=== PATIENT | female | born 2000 | race Caucasian/White ===

== ENCOUNTER 2020-12-17 15:08 | Emergency (ER) | payer BC, OTHER ==
[~2020-12-17] VITALS: Ht 165.1 cm; Wt 65.8 kg
--- NOTE | 2020-12-17 16:37 | REP ---
INDICATION: flank pain right. COMPARISON: None. FINDINGS: Multiple ultrasonographic images of the right kidney show the right kidney to measure 11.1 x 5.6 x 4.5 cm. The renal cortical echotexture is within normal limits. There are no masses. There is good corticomedullary differentiation. There is mild hydronephrosis. There are no perinephric fluid collections. Multiple ultrasonographic images of the left kidney show the left kidney to measure 12.0 x 5.1 x 4.5 cm. The renal cortical echotexture is within normal limits. There are no masses. In the upper pole there is a 1.9 x 1.4 x 1.9 cm sized anechoic structure which exhibits posterior wall enhancement and increased through transmission. There is good corticomedullary differentiation. There is no hydronephrosis. There are no perinephric fluid collections. IMPRESSION: 1. There is mild right-sided hydronephrosis. 2. There is a simple cyst in the left kidney as described above. <Electronically signed by Bob Arauz > 12/17/20 1979
[2020-12-17 18:07] VITALS: BP 125/65
== END 2020-12-17 18:11 | disposition home or self-care (01) ==
LOC: M ED 15:08
DX: O99.891 Other specified diseases and conditions complicating pregnancy (principal); N13.30 Unspecified hydronephrosis; N28.1 Cyst of kidney, acquired; Z3A.17 17 weeks gestation of pregnancy; Z88.0 Allergy status to penicillin